=== PATIENT | male | born 1970 | race Caucasian/White ===

== ENCOUNTER 2020-11-14 18:55 | Emergency (ER) | payer BC ==
[~2020-11-14] VITALS: Ht 167.6 cm; Wt 77.1 kg
[2020-11-14 19:00] VITALS: BP 135/77
--- NOTE | 2020-11-14 19:11 | NUR ---
Patient ambulated to bed 06 with steady/even gait.
[2020-11-14] MEDS ORDERED: ASPIRIN 81 MG TAB.CHEW PO ONE (19:20)
[2020-11-14] MEDS ORDERED: KETOROLAC 30 MG/ML VIAL IVP ONE (19:20)
[2020-11-14] MEDS ORDERED: NACL 0.9% 500 ML IV ONE (19:20)
--- NOTE | 2020-11-14 19:23 | NUR ---
Report and transfer of care given to ALEX De La Rosa.
[2020-11-14 19:30] LABS: BASOPHILS % (AUTO) 0.5 % (0.0-2.0); EOSINOPHILS # (AUTO) 0.2 K/uL (0-0.4); EOSINOPHILS % (AUTO) 3.1 % (0.0-4.0); HEMOGLOBIN 14.5 g/dL (12.0-18.0); LYMPHOCYTES # (AUTO) 2.6 K/uL (2.0-11.5); LYMPHOCYTES % (AUTO) 36.4 % (20.5-51.1); MEAN CORPUSCULAR HEMOGLOBIN 32 pg (27-31); MEAN CORPUSCULAR HGB CONC 35 g/dL (33-37); MEAN CORPUSCULAR VOLUME 91.6 fL (80-94); MONOCYTES # (AUTO) 0.7 K/uL (0.8-1.0); MONOCYTES % (AUTO) 10.2 % (1.7-9.3); NEUTROPHILS # (AUTO) 3.5 K/uL (1.8-7.7); NEUTROPHILS % (AUTO) 49.8 % (42.2-75.2); PLATELET COUNT (AUTO) 274 K/uL (140-450); RED BLOOD CELL COUNT(AUTO) 4.48 MIL/uL (4.20-6.10); WHITE BLOOD COUNT (AUTO) 7.1 K/uL (4.8-10.8)
[2020-11-14 19:47] LABS: ALBUMIN 3.7 g/dL (3.4-5.0); ANION GAP 12.3 (8-16); CARBON DIOXIDE 27.2 mmol/L (21-32); CREATININE 0.9 mg/dL (0.6-1.3); POTASSIUM 3.5 mmol/L (3.5-5.1); TOTAL BILIRUBIN 0.2 mg/dL (0.0-1.0)
[2020-11-14] MEDS ORDERED: IBUP-2213 PO (20:08)
[2020-11-14 20:58] VITALS: BP 135/77
== END 2020-11-14 20:58 | disposition home or self-care (01) ==
LOC: MED 18:55
DX: R07.89 Other chest pain (principal); Z79.899 Other long term (current) drug therapy
CPT/HCPCS: 36415; 71045; 80053; 84484; 85025; 96361; 96374; 99284; J1885; J7030

== ENCOUNTER 2024-03-14 18:08 | Emergency (ER) | payer BC ==
[~2024-03-14] VITALS: Ht 165.1 cm; Wt 80.7 kg
[~2024-03-14 18:08] MED LIST: IBUP-2213 PO
[2024-03-14 18:12] VITALS: BP 151/87; PULSE 69; RESP 18; TEMP 98.2; O2SAT 96
[2024-03-14 18:44] LABS: BASOPHILS % (AUTO) 0.5 % (0.0-2.0); EOSINOPHILS # (AUTO) 0.1 K/uL (0-0.4); EOSINOPHILS % (AUTO) 1.8 % (0.0-4.0); HEMATOCRIT 41.9 % (36-52); HEMOGLOBIN 14.3 g/dL (12.0-18.0); LYMPHOCYTES # (AUTO) 2.4 K/uL (2.0-11.5); LYMPHOCYTES % (AUTO) 35.1 % (20.5-51.1); MEAN CORPUSCULAR HEMOGLOBIN 31 pg (27-31); MEAN CORPUSCULAR HGB CONC 34 g/dL (33-37); MEAN CORPUSCULAR VOLUME 91.4 fL (80-94); MONOCYTES # (AUTO) 0.7 K/uL (0.8-1.0); MONOCYTES % (AUTO) 9.7 % (1.7-9.3); NEUTROPHILS # (AUTO) 3.7 K/uL (1.8-7.7); NEUTROPHILS % (AUTO) 52.9 % (42.2-75.2); PLATELET COUNT (AUTO) 295 K/uL (140-450); RED BLOOD CELL COUNT(AUTO) 4.59 MIL/uL (4.20-6.10); RED CELL DISTRIBUTION WIDTH 13.2 % (11.6-13.7)
[2024-03-14 18:50] VITALS: O2SAT 95
[2024-03-14] MEDS: NACL 0.9% 1,000 ML IV ONE (18:50)
[2024-03-14 19:00] LABS: CALCIUM 9.3 mg/dL (8.5-10.1); CARBON DIOXIDE 26.5 mmol/L (21-32); CREATININE 0.9 mg/dL (0.6-1.3); POTASSIUM 3.5 mmol/L (3.5-5.1)
[2024-03-14 19:07] LABS: ALANINE AMINOTRANSFERASE 35 U/L (12-78); ALBUMIN 3.7 g/dL (3.4-5.0); ALKALINE PHOSPHATASE 80 U/L (50-136); ASPARTATE AMINOTRANSFERASE 15 U/L (15-37); BILIRUBIN,DIRECT 0.1 mg/dL (0.0-0.3); TOTAL BILIRUBIN 0.4 mg/dL (0.0-1.0); TOTAL PROTEIN, SERUM 7.2 g/dL (6.4-8.2)
[2024-03-14] MEDS ORDERED: MECL-303 PO (19:34)
[2024-03-14] MEDS ORDERED: ACET-10509 PO (19:34)
[2024-03-14 19:42] VITALS: BP 120/67; PULSE 80; RESP 24; TEMP 98.2; O2SAT 98
== END 2024-03-14 19:42 | disposition home or self-care (01) ==
LOC: MED 18:08
DX: R51.9 Headache, unspecified (principal); R42 Dizziness and giddiness; R55 Syncope and collapse; Z79.899 Other long term (current) drug therapy
CPT/HCPCS: 36415; 70450; 71045; 80048; 80076; 84484; 85025; 93005; 96360; 99285; J7030; Q0092